=== PATIENT | male | born 1950 | race Caucasian/White ===

== ENCOUNTER 2024-05-12 07:13 | Day surgery (SDC) | payer OTHER, SELFPAY ==
[2024-05-12 08:19] VITALS: BMI 21.6
--- NOTE | 2024-05-12 10:03 | ITS.CL.CARDI ---
Brush Machine Setter - Cardioversion
Cardioversion
Procedure Report:
Procedure: INOCENTE-guided electrical cardioversion
Pre-operative diagnosis: Persistent atrial fibrillation
Post-operative diagnosis: Persistent atrial fibrillation status post DC cardioversion to sinus rhythm
Anesthesia: MAC
Attending Physician: Heriberto Castro MD
Procedure Description: The patient was brought to the electrophysiology laboratory in the fasting state. Informed consent was obtained from the patient prior to the start of the procedure. Adherence to anticoagulation was confirmed. Electrodes were
placed on the patient and connected to an external defibrillator. Monitoring of blood pressure, ECG tracings, and pulse oximetry was initiated. The pads were applied to the patient in the anterior and posterior positions. The patient was sedated by
the anesthesiologist. A INOCENTE (reported separately) was performed prior to the cardioversion. No left atrial or left atrial appendage thrombus was seen. After the INOCENTE probe was removed, a 200 joule biphasic synchronized shock was delivered to the
patient under MAC anesthesia. Sinus rhythm was successfully restored. The patient recovered uneventfully from MAC anesthesia. There were no immediate post-procedure complications. The patient left the lab in good condition. The attending physician
was present throughout the entire procedure.
Impression: Successful INOCENTE-guided direct current cardioversion with christianity of sinus rhythm after one 200 joule biphasic synchronized shock.
== END 2024-05-12 10:06 | disposition home or self-care (01) ==
LOC: CATH 07:13
PROVIDERS: ATTENDING PHYSICIAN Internal Medicine Cardiovascular Disease; FAMILY PHYSICIAN Family Medicine; OTHER PHYSICIAN Internal Medicine Cardiovascular Disease
DX: I48.19 Other persistent atrial fibrillation (principal); I48.92 Unspecified atrial flutter; I08.1 Rheumatic disorders of both mitral and tricuspid valves; Z82.49 Family history of ischemic heart disease and other diseases of the circulatory system; Z79.01 Long term (current) use of anticoagulants
CPT/HCPCS: 93312; 93320; 93325; 92960; 93005

== ENCOUNTER 2024-06-15 08:19 | Day surgery (SDC) | payer OTHER, SELFPAY ==
[2024-05-25 07:54] VITALS: BMI 22.9
[2024-05-25 08:33] LABS: ALT (SGPT) 41 U/L (0-50); AST (SGOT) 36 U/L (17-59); Albumin 4.6 g/dl (3.5-5.0); Alkaline Phosphatase 83 U/L (38-126); Blood Urea Nitrogen 17 mg/dl (9-20); Calcium 9.8 mg/dl (8.4-10.2); Carbon Dioxide 30 mmol/L (22-30); Chloride 101 mmol/L (98-107); Estimated Creatinine Clearance 62 ml/min; Glucose 101 mg/dl (70-99); Magnesium 2.1 mg/dl (1.6-2.3); Potassium 4.8 mmol/L (3.5-5.1); Sodium 140 mmol/L (135-145); Total Bilirubin 0.9 mg/dl (0.2-1.3); Total Protein 6.9 g/dl (6.3-8.2); eGFR > 60.00
[2024-05-25 08:41] LABS: INR 1.04; PT 14.2 Sec (11.4-14.6)
[2024-05-25 08:42] LABS: % Basophils 0.8 % (0-2); % Eosinophils 1.3 % (0-6); % Immature Granulocytes 0.3 % (0-0.5); % Lymphocytes 38.6 % (20.5-51.1); % Monocytes 12.9 % (1.7-9.3); % Neutrophils 46.1 % (42.2-75.2); Absolute Eosinophils 0.1 10^3/uL (0-0.7); Absolute Lymphocytes 1.4 10^3/uL (1.2-3.4); Absolute Monocytes 0.5 10^3/uL (0.1-0.6); Absolute Neutrophils 1.7 10^3/uL (1.4-6.5); Hematocrit 47.3 % (39.0-52.0); Hemoglobin 16.7 g/dL (13.0-18.0); Mean Corp Hgb Conc. 35.3 g/dL (33.0-37.0); Mean Corpuscular Hgb 33.6 pg (27.0-31.0); Mean Corpuscular Volume 95.2 fL (80.0-94.0); Mean Platelet Volume 10.1 fL (7.4-10.4); Nucleated Red Blood Cells % 0 % (-); Platelet Count 218 10^3/uL (130-400); Red Blood Cell Count 4.97 10^6/uL (4.70-6.10); White Blood Cell Count 3.7 10^3/uL (4.8-10.8)
--- NOTE | 2024-05-26 09:04 | W.PN.UPDATE ---
Update Note
Progress Note Update
CT chest incidental finding:
1. Single, individual left and right superior and inferior pulmonary veins.
2. 8 mm solid pulmonary nodule in the anterior right lower lobe. Consider CT at 3 months, PET/CT, or tissue sampling per Fleischner Society guidelines.
--faxed to PCP and tiger texted as well as LM with office staff.
--LM for patient.
[2024-06-15] VITALS (25 sets, daily range): BP systolic 84–141; BP diastolic 68–102
--- NOTE | 2024-06-15 08:51 | ITS.CL.ABL ---
Aviation Electrical Technician - Ablation
Ablation
Procedure Report:
Procedure Date: 06/15/2024
Patient History:
Patient is a pleasant 74-year-old male with a past medical history significant for paroxysmal atrial flutter status post CTI RFA 2018, persistent symptomatic atrial fibrillation.
See H&P for complete details.
Indication:
Symptomatic persistent atrial fibrillation
Arrhythmia Specific History:
Prior Medical Therapies for Rate and Rhythm Control:
[ ] Beta-madelaine
[ ] Calcium channel-madelaine
[ ] Amiodarone
[ ] Dronederone
[ ] Sotalol
[ ] Flecainide
[ ] Dofetilide
X Options limited by bradycardia
[ ] Options limited by comorbid renal disease
Prior Procedural Therapies for AF/AFL:
X Cardioversion
[ ] Pulmonary Vein Isolation
[ ] Posterior Wall Isolation
X Additional lines (Specify) - CTI RFA 2017 for typical atrial flutter
[ ] Surgical Flores-MAZE or PVI (Specify)
Procedure Performed:
X AF ablation procedure (21452) -- includes LA/CS pacing, trans-septal, 3D mapping, + ICE
[ ] +IV drug (79827)
[ ] +Other Arrhythmia (16950)
X +Other AF Line/ablation (82403) - Posterior wall isolation
Risks and expected recovery has been explained in detail. Alternative options have been explored, and in a shared-decision making fashion we have decided that this was the most appropriate procedure.
Method
NPO status confirmed. Grounding pad applied. Defibrillator pads applied. Continuous surface ECG, pulse oximetry, and blood pressure were monitored. Procedure was performed under general anesthesia, with anesthesia services.
Both groins were clipped, prepped with Chloraprep, and draped in sterile fashion. Time out was called. Local anesthesia administered with bupivacaine. The right femoral vein was accessed for catheter placement, using ultrasound guidance,
micro-puncture needle/wire, and modified seldinger technique. 3 sheaths were placed. The following catheters were used:
[ ] Tacticath SE (D/F Curve) ablation catheter
X Viewflex 9Fr ICE catheter
X Inquiry decapolar 6Fr diagnostic catheter
[ ] CRD Hex 6Fr
[ ] Arctic Front Advance Cryoballoon ([ ]28mm[ ]23mm)
[ ] Achieve Advance mapping catheter ([ ]15mm[ ]20mm)
X FlexCath Contour 10 Fr with PulseSelect PFA Catheter
X Advisor HD Grid Mapping Catheter, SE
[ ] Acuson AcuNav 8 Fr ICE catheter
[ ]Other: [ ]
Intracardiac ultrasound (ICE) was carefully advanced into the right atrium to guide sheath placement over a J-wire, catheter placement, guide trans-septal puncture, identify potential complications, identify anatomic structures and ensure proper
contact between ablation catheter and tissue.
Heparin was given prior to trans-septal puncture. Heparin was given to achieve and maintain a target ACT of 300-400 seconds throughout the procedure.
Trans-septal access was performed under ICE guidance. The trans-septal puncture was performed with a SafeSept wire through a Brockenbrough needle assembly through the steerable sheath. The wire was visualized as it entered the LSPV and system
advanced under ICE guidance and fluoroscopy into the LA. The Brockenbrough needle assembly, SafeSept wire and sheath dilator were removed under negative pressure. LA pressure was measured and recorded.
ICE and 3D mapping was performed to identify relevant cardiac structures. A careful 3D map was created to assess for regions of low-voltage and abnormal electrogram signals using HD grid mapping catheter and PulseSelect catheter. Additional mapping
was performed as outlined below.
Prior to ablation, glycopyrrolate was provided. PulseSelect catheter was advanced over J-wire to the ostium of each vein. Pulmonary vein isolation was performed with ostial and antral lesions in a circumferential manner. Contact was visualized via
EAM, ICE, fluoroscopy, and EGM signals. Posterior wall isolation was performed by anchoring the J-wire within the pulmonary vein and placing the PulseSelect catheter in contact with the posterior wall as visualized by aforementioned methods.
Following completion of ablation lesions, sinus rhythm was restored with a 200J synchronized DCCV and a post-ablation voltage/activation map was performed in sinus rhythm. Entrance and exit block were confirmed for each vein and the posterior wall.
Catheter and sheath were removed from the left atrium and post-ablation intracardiac echo evaluation was consistent with pre-ablation with no changes and no pericardial effusion and there is no left atrial thrombus or left ventricle thrombus seen.
Electrophysiology study was performed. There were no inducible arrhythmias with programmed stimulation. Hemostasis was obtained with figure of 8 stitch for each groin and with manual pressure. Protamine was used for reversal.
Estimated Blood Loss
5 mL
Complications
None
Fluoroscopy: 6.6 minutes; 15.06 mGy; DAP 1.77
Baseline Intervals:
Rhythm: AF
QRS: 65 ms
Post-Procedure Intervals:
SD: 212 ms
QRS: 92 ms
QT: 407 ms
QTc: 429 ms
A-A: 900 ms
R-R: 900 ms
AVWB: 390 ms
AVERP: 600/350 ms
AERP: 600/210 ms
Recommendations
- Bedrest with straight-leg precautions as ordered
- Anticipate same day discharge if patient meeting clinical metrics
- Resume home medications as indicated
- Ok to resume anticoagulation tonight if patient and groin sites stable
- PPI daily for 30 days
- Plan for follow-up in office as scheduled in 3 months
Hector Pace DO
Clinical Cardiac Skip Loader
cc: Jimmy Richardson MD
[2024-06-15 10:39] LABS: ACT-LR - POC 331 Seconds (116-155)
[2024-06-15 10:58] LABS: ACT-LR - POC 322 Seconds (116-155)
[2024-06-15 11:59] LABS: ACT-LR - POC 179 Seconds (116-155)
--- NOTE | 2024-06-15 16:43 | W.PN.UPDATE ---
Update Note
Progress Note Update
74 yo WM s/p PVI (same day) He feels good, no cp, sob, haritha diet, voiding, amb w/o dizziness, EKG SR 1deg AVB, R fem site c/d/i, soft. He will take Eliquis at home tonight. Activity restrictions reviewed. He will f/u [facility] in 3 mo. He had lung nodule on
CT and will f/u with Pulm outpt. He is for d/c home after 5pm.
== END 2024-06-15 17:00 | disposition home or self-care (01) ==
LOC: CATH 08:19
PROVIDERS: ATTENDING PHYSICIAN Internal Medicine Cardiovascular Disease; FAMILY PHYSICIAN Family Medicine; OTHER PHYSICIAN Internal Medicine Interventional Cardiology
DX: I48.19 Other persistent atrial fibrillation (principal); Z98.890 Other specified postprocedural states; Z79.01 Long term (current) use of anticoagulants; I10 Essential (primary) hypertension; I48.92 Unspecified atrial flutter; R00.1 Bradycardia, unspecified; R06.02 Shortness of breath; R53.83 Other fatigue
CPT/HCPCS: C1732; C1894; C1769; C1759; C1733; C1766; 36415; 75572; 80053; 83735; 85025; 85347; 85610; 86850; 86900; 86901; 93005; 93656; 93657; Q9967

== ENCOUNTER → 2024-10-03 11:34 | Outpatient (REF) | payer OTHER, SELFPAY | LOC: HWRCS 11:34 | PROVIDERS: ATTENDING PHYSICIAN Internal Medicine Cardiovascular Disease; FAMILY PHYSICIAN Family Medicine | DX: I48.91 Unspecified atrial fibrillation (principal) | CPT/HCPCS: 78452; 93017; A9500 ==

== ENCOUNTER → 2025-01-05 08:10 | Outpatient (REF) | payer OTHER, SELFPAY | LOC: PAVMRI 08:10 | PROVIDERS: ATTENDING PHYSICIAN Internal Medicine Cardiovascular Disease; FAMILY PHYSICIAN Family Medicine | DX: I47.29 Other ventricular tachycardia (principal); I48.91 Unspecified atrial fibrillation; I49.3 Ventricular premature depolarization; I48.92 Unspecified atrial flutter; I38 Endocarditis, valve unspecified; R03.0 Elevated blood-pressure reading, without diagnosis of hypertension | CPT/HCPCS: 75561; 75565; A9585 ==

== ENCOUNTER → 2025-02-20 11:21 | Outpatient (REF) | payer OTHER, SELFPAY | LOC: HWRAD 11:21 | PROVIDERS: ATTENDING PHYSICIAN Internal Medicine Critical Care Medicine; FAMILY PHYSICIAN Family Medicine | DX: R91.1 Solitary pulmonary nodule (principal) | CPT/HCPCS: 71250 ==